=== PATIENT | female | born 1995 | race Caucasian/White ===

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

== ENCOUNTER → 2017-07-11 | Outpatient (CLI) | payer OTHER ==
[~2017-07-11] MED LIST: FLEXERIL10 MG PO; MOTRIN600 MG PO
== END | disposition home or self-care (01) ==
LOC: RES 09:50
DX: R06.02 Shortness of breath (principal)
CPT/HCPCS: 94060; 94726; 94729